=== PATIENT | female | born 1980 | race African-American/Black ===

== ENCOUNTER 2019-07-20 11:20 | Emergency (ER) | payer BC ==
[~2019-07-20] VITALS: Ht 175.3 cm; Wt 72.6 kg
--- OUTSIDE RECORDS SUMMARY | 2019-07-20 11:23 | XMS REPORT ---
Author Author [facility] t Organization [facility] Address Unknown Phone Unavailable Care Team Providers Care Ball Racker Name Role Phone ISABELLE RODRIGUEZ Unavailable Unavailable Payers Payer Name Policy Type Policy Number Effective Date Expiration D ate Problems This patient has no known problems. Allergies, Adverse Reactions, Alerts Allergy Name Allergy Type Status Severity Reaction(s) Onset Date Inacti ve Date Treating Clinician Comments No Known Allergies DA Active U 2017-12-02 00:00:00 Medications This patient has no known medications. Encounters Start Date/Time End Date/Time Encounter Type Admission Type Attendi [facility] Care Department Encounter ID 2018-11-23 19:37:00 2018-11-23 19:37:00 Emergency E MHBL [id number] 2018-11-23 13:29:00 2018-11-23 13:29:00 Outpatient MHSE [id number] 2018-11-06 18:50:00 2018-11-06 18:50:00 Outpatient E MHBL [id number] 2018-11-04 07:39:00 2018-11-04 07:39:00 Outpatient [facility]BL [id number] 2018-11-04 06:02:00 2018-11-04 06:02:00 Outpatient [facility]BL [id number] 2017-12-25 00:00:00 2017-12-25 00:00:00 Outpatient [facility] [id number] 2017-12-22 11:42:25 2017-12-22 11:42:25 Outpatient [facility] [id number] 2017-12-22 10:30:48 2017-12-22 10:30:48 Outpatient [facility] [id number] 2017-12-03 08:53:34 2017-12-03 08:53:34 Outpatient [facility] [id number] Results Test Description Test Time Test Comments Text Results Atomic Results Result Comments WET PREP 2018-09-08 17:37:00 WBC WET PREP (BEAKER) (test code = 528) Few white blood cells se en CLUE CELLS (BEAKER) (test code = 526) Few clue cells seen YEAST WET PREP (BEAKER) (test code = 530) No budding yeast seen TRICH WET PREP (BEAKER) (test code = 531) No Trichomonas seen BACT WET PREP (BEAKER) (test code = 532) Moderate bacteria seen U/S, ENDOVAGINAL (EV)2018-09-08 17:26:00Reason for exam:->ABDOMINAL PAINReason for exam:->possible right ovarian hemorrhagic cystFINAL REPORT Ultrasound of the pelvis, endovaginal ultrasound and duplex Doppler complete. CLINICAL HISTORY: Abdominal pain. Possible right ovarian hemorrhagic cyst. COMPARISON STUDY: CT scan dated September 08, 2018. TECHNIQUE: Grayscale, color-flow, duplex Doppler and spectral analysis of the pelvis was performed. FINDINGS: Both a transabdominal and endovaginal pelvic ultrasound were performed to better visualize the anatomy. The uterus measures 8.3 x 4.8 x 5.6 cm and contains a 6 mm endometrial stripe. No fibroids are seen. The right ovary measures 3.9 x 1.5 x 1.6 cm and left ovary measures 6.7 x 5.6 x 5.0 cm. Normal arterial inflow and venous outflow is seen to both ovaries. On the left side is a 5.9 x 4.6 x 4.6 cm cyst containing thin internal septations. No significant free fluid is seen. IMPRESSION:1. Large septated left ovarian cyst. Follow-up ultrasound in six weeks' time is recommended.2. Flow to both ovaries. Signed: Juvencio Lyles MDReport Verified Date/Time: 09/08/2018 17:26:18 Reading Locati on: OQMT 10th [facility] Radiology Reading Room U/S, PELVIS, WITH [id number] 17:26:00 Reason for exam:->ABDOMINAL PAINFINAL REPORT Ultrasound of the pelvis, endovaginal ultrasound and duplex Doppler complete. CLINICAL HISTORY: Abdominal pain. Possible right ovarian hemorrhagic cyst. COMPARISON STUDY: CT scan dated September 08, 2018. TECHNIQUE: Grayscale, color-flow, duplex Doppler and spectral analysis of the pelvis was performed. FINDINGS: Both a transabdominal and endovaginal pelvic ultrasound were performed to better visualize the anatomy. The uterus measures 8.3 x 4.8 x 5.6 cm and contains a 6 mm endometrial stripe. No fibroids are seen. The right ovary measures 3.9 x 1.5 x 1.6 cm and left ovary measures 6.7 x 5.6 x 5.0 cm. Normal arterial inflow and venous outflow is seen to both ovaries. On the left side is a 5.9 x 4.6 x 4.6 cm cyst containing thin internal septations. No significant free fluid is seen. IMPRESSION:1. Large septated left ovarian cyst. Follow-up ultrasound in six weeks' time is recommended.2. Flow to both ovaries. Signed: Ju[facility]cio Lyles [facility] Verified Date/Time: 09/08/2018 17:26:18 Reading Location: [address] Radiology Reading Room , [id number] 14:32:00FINAL REPORT TECHNIQUE: CT of the abdomen and pelvis WITH intravenous contrast and WITHOUT oral contrast. Dose modulation, iterative reconstruction, and/or weight- based adjustment of the mA/kV was utilized to reduce the radiation dose to as low as reasonably achievable. INDICATION: Abdominal pain, unspecified. COMPARISON: None. FINDINGS: LOWER THORAX: Unremarkable. HEPATOBILIARY: A hyperenhancing structure in segment IV measures 0.8 cm on axial image 15. Additional hyperenhancing structure in segment measure 0.6 cm and 0.8 cm. Gallbladder is unremarkable. No biliary ductal dilatation.SPLEEN: No splenomegal y.PANCREAS: No focal masses or ductal dilatation. ADRENALS: No adrenal nodules.K IDNEYS/URETERS: No hydronephrosis, stones, or masses.PELVIC ORGANS/BLADDER: Retr overted uterus. A mildly hyperdense left adnexal cystic structure measures up to 5.4 cm. The actual ovary does not appear edematous. Upper, left ovary is slight ly deviated towards the midline. PERITONEUM/RETROPERITONEUM: Small volume free f luid in the pelvis.LYMPH NODES: No lymphadenopathy.VESSELS: Retroaortic left ferdinand al vein. GI TRACT: No distention or wall thickening. The appendix is normal. BON ES AND SOFT TISSUES: Masslike hyperenhancement of the lower abdominal wall measu res 2.6 x 1.9 x 2.4 cm. 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 IMPRESSI ON: 1.The left ovarian mildly hyperdense structure measures 5.4 cm and may be a hemorrhagic cyst. Further evaluation with ultrasound is recommended. 2.Hyperenha ncing structures in the liver measure up to 0.8 cm. These are most likely either focal nodular hyperplasia or hemangiomas in the absence of underlying liver dis ease. If the patient has underlying liver disease, consider a MRI of the abdomen with and without contrast on a nonemergent basis. If the patient does not have underlying liver disease, no further imaging is necessary. 3.Some masslike hyper enhancement in the lower abdominal wall is most likely scar endometriosis. This could be confirmed with either biopsy or MRI. Signed: Cody Sanford MDReport Verifi ed Date/Time: 09/08/2018 14:32:30 Reading Location: [address] Body Readin Room C METABOLIC [id number] 12:50:00* Test Item Value Reference Range Comments SODIUM (BEAKER) (test code = 381) 142 meq/L 135-148 POTASSIUM (BEAKER) (test code = 379) 4.5 meq/L 3.6-5.5 CHLORIDE (BEAKER) (test code = 382) 110 meq/L 98-106 CO2 (BEAKER) (test code = 355) 25 meq/L 24-32 BLOOD UREA NITROGEN (BEAKER) (test code = 354) 12 mg/dL 1 0-26 CREATININE (BEAKER) (test code = 358) 0.82 mg/dL 0.50-1.20 GLUCOSE RANDOM (BEAKER) (test code = 652) 85 mg/dL 70-110 CALCIUM (BEAKER) (test code = 697) 8.8 mg/dL 8.5-10.5 EGFR (BEAKER) (test code = 1092) 94 mL/min/1.73 sq m ESTIMATED GFR IS NOT ACCURATE CREATININE CLEARANCE IN PREDICTING GLOMERULAR FILTRATION RATE. ESTIMATED GFR IS NOT APPLICABLE FOR DIALYSIS PATIENTS. HEPATIC FUNCTION [id number] 12:50:00* Test Item Value Reference Range Comments TOTAL PROTEIN (BEAKER) (test code = 770) 6.6 gm/dL 6.0-8.5 ALBUMIN (BEAKER) (test code = 1145) 3.5 g/dL 3.5-5.0 BILIRUBIN TOTAL (BEAKER) (test code = 377) 0.5 mg/dL 0.1-1 .2 BILIRUBIN DIRECT (BEAKER) (test code = 706) 0.4 mg/dL 0.0- 0.4 ALKALINE PHOSPHATASE (BEAKER) (test code = 346) 21 U/L 30-115 AST (SGOT) (BEAKER) (test code = 353) 23 U/L 5-40 ALT (SGPT) (BEAKER) (test code = 347) 20 U/L 5-50 URINALYSIS W/ REFLEX URINE [id number] 12:46:00* Test Item Value Reference Range Comments COLOR (BEAKER) (test code = 470) Yellow CLARITY (BEAKER) (test code = 469) Slightly Cloudy SPECIFIC GRAVITY UA (BEAKER) (test code = 468) 1.032 1 .001-1.035 Test performed on refractometer PH UA (BEAKER) (test code = 467) 6.0 5.0-8.0 PROTEIN UA (BEAKER) (test code = 464) Negative Negative GLUCOSE UA (BEAKER) (test code = 365) Negative Negative KETONES UA (BEAKER) (test code = 371) Negative Negative BILIRUBIN UA (BEAKER) (test code = 462) Positive Negative BLOOD UA (BEAKER) (test code = 461) Small Negative NITRITE UA (BEAKER) (test code = 465) Negative Negative LEUKOCYTE ESTERASE UA (BEAKER) (test code = 466) Negative Negative UROBILINOGEN UA (BEAKER) (test code = 463) 0.2 mg/dL 0.2-1 .0 BACTERIA (BEAKER) (test code = 517) Moderate MUCUS (BEAKER) (test code = 1574) Many RBC UA-MANUAL (BEAKER) (test code = 1659) 5-10 /HPF WBC UA-MANUAL (BEAKER) (test code = 1661) 10-20 /HPF SQUAMOUS EPITHELIAL MANUAL (BEAKER) (test code = 1663) 10-20 /HP F SOURCE(BEAKER) (test code = 2795) CBC W/PLT COUNT & AUTO [id number] 12:42:00* Test Item Value Reference Range Comments WHITE BLOOD CELL COUNT (BEAKER) (test code = 775) 5.0 K/ L 4.0-10.0 RED BLOOD CELL COUNT (BEAKER) (test code = 761) 4.86 M/ L 4.00-5.00 HEMOGLOBIN (BEAKER) (test code = 410) 12.2 GM/DL 12.0-15.0 HEMATOCRIT (BEAKER) (test code = 411) 38.2 % 36.0-45.0 MEAN CORPUSCULAR VOLUME (BEAKER) (test code = 753) 78.5 fL 82.0-99.0 MEAN CORPUSCULAR HEMOGLOBIN (BEAKER) (test code = 751) 25.1 pg 27.0-33.0 MEAN CORPUSCULAR HEMOGLOBIN CONC (BEAKER) (test code = 752) 31.9 GM/DL 32.0-36.0 RED CELL DISTRIBUTION WIDTH (BEAKER) (test code = 412) 15.7 % 10.3-14.2 PLATELET COUNT (BEAKER) (test code = 756) 301 K/CU MM 150-43 0 MEAN PLATELET VOLUME (BEAKER) (test code = 754) 8.2 fL 6.5-10.5 NEUTROPHILS RELATIVE PERCENT (BEAKER) (test code = 429) 39 % LYMPHOCYTES RELATIVE PERCENT (BEAKER) (test code = 430) 49 % MONOCYTES RELATIVE PERCENT (BEAKER) (test code = 431) 7 % EOSINOPHILS RELATIVE PERCENT (BEAKER) (test code = 432) 4 % BASOPHILS RELATIVE PERCENT (BEAKER) (test code = 437) 0 % NEUTROPHILS ABSOLUTE COUNT (BEAKER) (test code = 670) 1.96 K/ L 1.80-8.00 LYMPHOCYTES ABSOLUTE COUNT (BEAKER) (test code = 414) 2.47 K/ L 1.48-4.50 MONOCYTES ABSOLUTE COUNT (BEAKER) (test code = 415) 0.33 K/ L 0.00-1.30 EOSINOPHILS ABSOLUTE COUNT (BEAKER) (test code = 416) 0.21 K/ L 0.00-0.50 BASOPHILS ABSOLUTE COUNT (BEAKER) (test code = 417) 0.02 K/ L 0.00-0.20 SCREEN, [id number] 12:41:00* Test Item Value Reference Range Comments TEST URINE (BEAKER) (test code = 583) Negative
--- NOTE | 2019-07-20 12:33 | Diagnostic Imaging Report ---
CT of the abdomen and pelvis, without contrast. History: Abdominal pain. Comparison: None available. Technique: Multidetector CT scanning of the abdomen and pelvis was performed from the level of the lung bases to the inferior pubic rami without the use of contrast. Coronal and sagittal multiplanar reformations were obtained. RADIATION DOSE: Total DLP: 804.17 mGy*cm Dose modulation, iterative reconstruction, and/or weight based adjustment of the mA/kV was utilized to reduce the radiation dose to as low as reasonably achievable. FINDINGS: The visualized lungs are unremarkable. The imaged portion of the heart demonstrates no significant abnormalities. The liver is normal in size and attenuation on this noncontrast enhanced examination. The gallbladder appears contracted but otherwise unremarkable. There is no biliary ductal dilatation. The stomach is distended with ingested material but otherwise unremarkable. The pancreas, spleen, and bilateral adrenal glands demonstrate unremarkable noncontrast appearance. The kidneys are normal in size and location. There is no evidence for nephrolithiasis or hydronephrosis. No ureteral stone or dilatation is appreciated. Suspected phlebolith are noted within the pelvis, none of which can be localized to within the urinary system. The urinary bladder is not distended for evaluation. The uterus is surgically absent. No abnormal adnexal masses are identified. Air is normal course and caliber. The IVC is normal in caliber. Please note evaluation the bowel is limited without the use of enteric contrast material. The visualized loops of small and large bowel demonstrate no evidence of obstruction or inflammation. A suspected normal-appearing appendix is identified within the right lower quadrant. There is no ascites or peritoneal free air. No abnormally enlarged lymph nodes are identified within the abdomen or pelvis. Small fat-containing umbilical hernia noted. The osseous structures demonstrate no evidence for acute fracture or destructive process. IMPRESSION: No acute abdominopelvic process identified to correlate with the patient's abdominal pain. Signed by: Dr. Seamus Dailey MD on 07/20/2019 12:30 PM
[2019-07-20 12:40] VITALS: BP 99/57
[2019-07-20] MEDS ORDERED: ZOFRAN4 MG SL (12:42)
== END 2019-07-20 12:47 | disposition home or self-care (01) ==
LOC: FSED 11:20
DX: R10.31 Right lower quadrant pain (principal); R10.30 Lower abdominal pain, unspecified; R11.2 Nausea with vomiting, unspecified; F17.210 Nicotine dependence, cigarettes, uncomplicated
CPT/HCPCS: 74176; 80048; 80076; 81003; 85025; 99284

== ENCOUNTER 2019-09-07 17:42 | Emergency (ER) | payer OTHER, BC ==
[~2019-09-07] VITALS: Ht 175.3 cm; Wt 72.6 kg
[~2019-09-07 17:42] MED LIST: ZOFRAN4 MG SL
[2019-09-07] MEDS ORDERED: SODIUM CHLORIDE 0.9% 1000ML 1,000 ML IV STA (18:18)
[2019-09-07] MEDS ORDERED: ONDANSETRON HCL INJ 2MG/ML 2ML 2 MG/ML VIAL IV STA (18:18)
[2019-09-07] MEDS ORDERED: KETOROLAC TROMETHAMINE 30 MG/ML VIAL IV ONE (18:30)
[2019-09-07] MEDS ORDERED: FAMOTIDINE 20 MG/2 ML VIAL IV ONE (18:30)
--- NOTE | 2019-09-07 18:42 | Diagnostic Imaging Report ---
EXAMINATION: CXR 1 VEW - HOPD INDICATION: Chest pain COMPARISON: None FINDINGS: AP view TUBES and LINES: None. LUNGS/PLEURA: Lungs are well inflated. There is no evidence of pneumonia or pulmonary edema.. There is no pleural effusion or pneumothorax. HEART AND MEDIASTINUM: The cardiomediastinal silhouette is unremarkable. BONES AND SOFT TISSUES: No acute osseous lesion. Soft tissues are unremarkable. UPPER ABDOMEN: No free air under the diaphragm. IMPRESSION: No acute thoracic abnormality. Signed by: Hakeem Patton MD on 09/07/2019 6:39 PM
--- NOTE | 2019-09-07 18:52 | Emergency Department Note ---
History of Present Illnes History of Present Illness History of Present Illness This is a 39 year old female c/o mid ches tpain for 4 days, constant, hurting with a deep breath. states CP started yesterday when she went to use the bathroom. Pain described as initially sharp then a constant dull cramping pain that gets worse when she lays down. Has taken antiacids without relief. Pain is now traveling to top of shoulder. Also, pt. states she has had a non-productive cough x4 days. 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 Any updates have been documented here. Past Medical History Recent Fever: No Clinical Suspicion of Infectio: No New/Unexplained Change in Ment: No Past Medical History: None Past Surgical History: Hysterectomy, Other Surgery: endometriosis, Social History Smoking Cessation: Unknown if ever smoked Alcohol Use: Social Any Illegal Drug Use: No TB Exposure/Symptoms: No Physically hurt or threatened: No Family History Family history of heart diseas: No Other Any Pre-Existing Lines (PICC,: No Is patient up to date on immun: No Review of Systems Review of Systems Constitutional: Reports malaise EENTM: Reports no symptoms Cardiovascular: Reports chest pain Respiratory: Reports no symptoms, Reports chest congestion, Reports cough, Reports pain with cough Gastrointestinal: Reports no symptoms Genitourinary: Reports no symptoms Musculoskeletal: Reports no symptoms Integumentary: Reports no symptoms Neurological: Reports no symptoms Psychological: Reports no symptoms Endocrine: Reports no symptoms Hematological/Lymphatic: Reports no symptoms Physical Exam Physical Exam CONSTITUTIONAL Constitutional: Present well-developed, Present well-nourished HENT HENT: Present normocephalic, Present atraumatic, Present oropharynx clear/moist, Present nose normal HENT L/R: Present left ext ear normal, Present right ext ear normal EYES Eyes: Reports PERRL, Reports conjunctivae normal NECK Neck: Present ROM normal PULMONARY Pulmonary: Present effort normal, Present breath sounds normal CARDIOVASCULAR Cardiovascular: Present regular rhythm, Present heart sounds normal, Present capillary refill normal, Present normal rate GASTROINTESTINAL Abdominal: Present soft, Present nontender, Present bowel sounds normal GENITOURINARY Genitourinary: Present exam deferred SKIN Skin: Present warm, Present dry MUSCULOSKELETAL Musculoskeletal: Present ROM normal NEUROLOGICAL Neurological: Present alert, Present oriented x 3, Present no gross motor or sensory deficits PSYCHOLOGICAL Psychological: Present mood/affect normal, Present judgement normal Results Laboratory Lab results reviewed: Yes Laboratory comments ddimer normal, doubt PE Imaging Imaging results reviewed: Yes (normal chest xray) Imaging Comments wnl Procedures 12 Lead ECG Interpretation ECG Interpretation : ECG: ECG 1 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 Power Plant Assembler: Interpreted by ED physician Date: Sep 07, 2019 Time: 18:04 Prior ECG tracings: reviewed Rhythm: sinus rhythm Rate: normal QRS axis: normal ST segments normal: Yes T waves normal: Yes Other findings: LAE Clinical Impression: non-specific ECG Assessment & Plan Medical Decision Making MDM clinically c/w COVID 19 Reassessment Reassessment taking po well Assessment & Plan Final Impression: (1) COVID-19 virus infection (2) Exposure to COVID-19 virus (3) Counseled about COVID-19 virus infection (4) GERD with esophagitis Depart Disposition: HOME, SELF-halfway Meds Active Scripts Famotidine (FAMOTIDINE) 20 Mg Tab, 20 MG PO DAILY, #30 TAB Prov:LOU ALVAREZ MD 09/07/19 Azithromycin (Z-SIDDHARTHA) 250 Mg Tablet, 250 MG PO UD, #1 UDPKT Z-Pack Prov:LOU ALVAREZ MD 09/07/19 Ondansetron Hcl* (ZOFRAN*) 4 Mg Tablet, 4 MG SL Q6H PRN for NAUSEA, #14 MG 0 Refills Prov:LOU ALVAREZ MD 09/07/19 Ondansetron Hcl* (ZOFRAN*) 4 Mg Tablet, 4 MG SL Q6H PRN for NAUSEA, #14 MG 0 Refills Prov:CLAY HAMM MD 07/20/19 Medications in the ED Famotidine 20 mg ONCE ONCE IV ; Start 09/07/19 at 18:30; Stop 09/07/19 at 18:31; Status UNV Ondansetron HCl 4 mg NOW STAT IV ; Start 09/07/19 at 18:18; Stop 09/07/19 at 18:19; Status UNV Ketorolac Tromethamine 30 mg ONCE ONCE IV ; Start 09/07/19 at 18:30; Stop 09/07/19 at 18:31; Status UNV Sodium Chloride 1,000 ml @ 0 mls/hr Q0M STAT IV ; Start 09/07/19 at 18:18; Stop 09/07/19 at 18:21; Status DC LOU ALVAREZ MD Sep 07, 2019 18:52
[2019-09-07] MEDS ORDERED: SODIUM CHLORIDE 0.9% 1000ML 1,000 ML ONE (19:28)
[2019-09-07] MEDS ORDERED: ZOFRAN4 MG SL (20:21)
[2019-09-07] MEDS ORDERED: AZITHROMYCIN250 MG PO (20:21)
[2019-09-07] MEDS ORDERED: FAMOTIDINE20 MG PO (20:21)
--- NOTE | 2019-09-07 20:27 | NUR ---
Dr. Caro ordered a UA however, pt. was unable to give sample. Dr. Caro advised.
[2019-09-07 21:18] VITALS: BP 106/70
== END 2019-09-07 21:18 | disposition home or self-care (01) ==
LOC: FSED 17:42
DX: U07.1 COVID-19 (principal); R05 Cough; K21.0 Gastro-esophageal reflux disease with esophagitis; N80.9 Endometriosis, unspecified
CPT/HCPCS: 71045; 80053; 84484; 85025; 85379; 87635; 96374; 96375; 96376; 99284; J1885; J2405; J7030

== ENCOUNTER 2019-12-16 11:54 | Emergency (ER) | payer BC, OTHER ==
[~2019-12-16] VITALS: Ht 175.3 cm; Wt 81.3 kg
[~2019-12-16 11:54] MED LIST changes: +AZITHROMYCIN250 MG PO; +FAMOTIDINE20 MG PO
[2019-12-16] MEDS ORDERED: KETOROLAC TROMETHAMINE 30 MG/ML VIAL IM STA (12:26)
--- NOTE | 2019-12-16 12:34 | NUR ---
ultrasound called in for pt
--- NOTE | 2019-12-16 12:34 | Emergency Department Note ---
History of Present Illnes History of Present Illness Chief Complaint: co right sided breast mass for last 2 weeks History of Present Illness This is a 39 year old female . 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 Any updates have been documented here. Past Medical History Recent Fever: No Clinical Suspicion of Infectio: No New/Unexplained Change in Ment: No Past Medical History: None Past Surgical History: Hysterectomy, Other Surgery: endometriosis, Social History Smoking Cessation: Current every day smoker Counseling Performed: Yes Alcohol Use: None Any Illegal Drug Use: No TB Exposure/Symptoms: No Physically hurt or threatened: No Other Any Pre-Existing Lines (PICC,: No Is patient up to date on immun: No Review of Systems Review of Systems Constitutional: Reports no symptoms EENTM: Reports no symptoms Cardiovascular: Reports no symptoms Respiratory: Reports no symptoms Gastrointestinal: Reports no symptoms Genitourinary: Reports no symptoms Musculoskeletal: Reports no symptoms Integumentary: Reports no symptoms Neurological: Reports no symptoms Psychological: Reports no symptoms Endocrine: Reports no symptoms Hematological/Lymphatic: Reports no symptoms Physical Exam Physical Exam CONSTITUTIONAL Constitutional: Present well-developed, Present well-nourished HENT HENT: Present normocephalic, Present atraumatic EYES Eyes: Reports PERRL, Reports conjunctivae normal, Reports EOM normal, Reports lids normal NECK Neck: Present ROM normal, Present supple PULMONARY Pulmonary: Present effort normal, Present breath sounds normal CARDIOVASCULAR Cardiovascular: Present regular rhythm, Present heart sounds normal, Present intact distal pulses, Present capillary refill normal GASTROINTESTINAL Abdominal: Present soft, Present nontender, Present bowel sounds normal GENITOURINARY Genitourinary: Present exam deferred SKIN Skin: Present erythema (? erythema areaolar area. nippli without discharge or distortion of anatomy), Present other (6x6 cm hard tender subareaolar mass no axillary nodes palpable) MUSCULOSKELETAL Musculoskeletal: Present ROM normal NEUROLOGICAL Neurological: Present alert, Present oriented x 3, Present DTRs normal, Present no gross motor or sensory deficits PSYCHOLOGICAL Psychological: Present mood/affect normal, Present behavior normal, Present thought content normal, Present judgement normal Procedures Incision and Drain Emergent situation: Yes Type of anesthesia: local Risks and benefits discussed: Yes Verbal consent obtained: Yes Written consent obtained: Yes Consent given by: patient Imaging studies available/revi: yes Prepped and draped in sterile: Yes Two patient identifiers confir: name, date of , medical record number Identity confirmed by: patient Procedure verified: Yes Side verified: yes Site verified: yes Site marked: yes Type: abscess Size: 2x2 cm Anesthesia method: local infiltration (2 % lidicaine without epi) Needle aspiration: Yes Incision type: stab incision Incision depth: submucosal Scalpel blade: 11 Wound management: probed and deloculated Drainage: purulent Drainage amount: moderate Wound treatment: wound left open Packing used: none Patient tolerance: tolerated well Procedure attestation: I performed the procedure Assessment & Plan Medical Decision Making MDM aspirated approx 2 cc of purulent material and size of the mass greatly decreased. I and D attempted unsuccessful Assessment & Plan Final Impression: (1) Abscess of breast Depart Disposition: HOME, SELF-[facility] Meds Active Scripts Acetaminophen/Codeine* (TYLENOL # 3*) 1 Ea Tab, 1 TAB PO QID PRN for pain for 5 Days, #20 0 Refills Prov:ANGES HORNE MD 12/16/19 Sulfamethoxazole/Trimethoprim (BACTRIM DS TABLET) 1 Each Tablet, 1 TAB PO BID for abcess for 10 Days, #20 TAB 0 Refills Prov:AGNES HORNE MD 12/16/19 Famotidine (FAMOTIDINE) 20 Mg Tab, 20 MG PO DAILY, #30 TAB Prov:LOU ALVAREZ MD 09/07/19 Azithromycin (Z-SIDDHARTHA) 250 Mg Tablet, 250 MG PO UD, #1 UDPKT Z-Pack Prov:LOU ALVAREZ MD 09/07/19 Ondansetron Hcl* (ZOFRAN*) 4 Mg Tablet, 4 MG SL Q6H PRN for NAUSEA, #14 MG 0 Refills Prov:LOU ALVAREZ MD 09/07/19 Ondansetron Hcl* (ZOFRAN*) 4 Mg Tablet, 4 MG SL Q6H PRN for NAUSEA, #14 MG 0 Refills Prov:CLAY HAMM MD 07/20/19 AGNES HORNE MD Dec 16, 2019 12:34
[2019-12-16] MEDS ORDERED: KETOROLAC TROMETHAMINE 30 MG/ML VIAL ONE (12:46)
--- OUTSIDE RECORDS SUMMARY | 2019-12-16 12:51 | XMS REPORT | Clinical Summary ---
Author Author 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 04/05/2019 Discontinued ibuprofen (ADVIL,MOTRIN) 1 po q 6 30 tablet 0 0 600 MG tablet hours, with 9 food, for pain and inflammation. . 04/05/2019 Discontinued ondansetron (ZOFRAN-ODT) 1 po q 6 20 tablet 0 0 4 MG disintegrating hour, prn 9 tablet nausea and vomiting.. 04/10/2019 oseltamivir (TAMIFLU) 75 Take 1 10 capsule 0 0 MG capsule capsule (75 0 mg total) by mouth 2 (two) times daily for 5 days. 08/09/2019 promethazine (PHENERGAN) Take 1 tablet 12 tablet 0 25 MG tablet (25 mg total) 0 by mouth every 6 (six) hours as needed for Nausea for up to 12 days. Active Problems Not on file Encounters Care Team Description Date Type Specialty OtElías lambert MD Non-intractable vomiting with nausea, un specified vomiting type (Primary Dx); Diarrhea, unspecified type; Gastroenteritis 07/28/2019 Emergency Emergency Medicine 07/28/2019 Travel Mamadou Barajas MD Acute viral syndrome (Primary Dx); Myalgia; Moderate fever; Nasal congestion; Nonproductive cough 04/05/2019 Emergency Emergency Medicine 04/05/2019 Travel after 12/15/2018 Family History Medical History Relation Name Comments COPD Mother Relation Name Status Comments Mother Social History Date Tobacco Use Types Packs/Day Years Used Current Every Day Smoker Cigarettes 0.5 Smokeless Tobacco: Never Used Alcohol Use Drinks/Week oz/Week Comments Yes rarely Sex Assigned at Date Recorded Not on file Industry Job Start Date Occupation Not on file Not on file Not on file Travel End Travel History Travel Start No recent travel history available. Last Filed Vital Signs Time Taken Vital Sign Reading 07/28/2019 6:20 PM CDT Blood Pressure 108/67 07/28/2019 6:20 PM CDT Pulse 73 07/28/2019 6:20 PM CDT Temperature 36.7 C (98 F) 07/28/2019 6:20 PM CDT Respiratory Rate 20 07/28/2019 6:20 PM CDT Oxygen Saturation 99% - Inhaled Oxygen - Concentration 07/28/2019 6:20 PM CDT Weight 75.8 kg (167 lb) 07/28/2019 6:20 PM CDT Height 175.3 cm (5' 9") 07/28/2019 6:20 PM CDT Body Mass Index 24.66 Plan of Treatment Not on file Results Not on fileafter 12/15/2018 Insurance Payer Benefit Subscriber ID Type Phone Address Plan / Group BLUE CROSS/[employer]UE [employer] BCBS OS xxxxxxxxxxxxxx PPO [address] [place] [address] O 57842-4 731
--- OUTSIDE RECORDS SUMMARY | 2019-12-16 12:51 | XMS REPORT | Clinical Summary ---
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 migrainosus, not Repeat after intractable 2 hours if needed. Maximum 200mg/24 hours.. Active ibuprofen (MOTRIN) 800 mg Take 1 tablet 30 tablet 0 tabletIndications: by mouth 8 Migraine without aura and every 8 hours without status as needed for migrainosus, not Pain. intractable Active ketoconazole (NIZORAL) 2 Apply to 30 g 0 1 % topical affected area 8 creamIndications: Tinea daily. pedis of left foot Active terbinafine HCl (LAMISIL) Take 1 tablet 45 tablet 0 250 mg tabletIndications: by mouth 8 Tinea pedis of left foot, daily. Onychomycosis of left great toe Active Problems Problem Noted Date Establishing care with new doctor, encounter for 10/2017 Tinea pedis of left foot 12/22/2017 Decay, teeth 07/29/2012 Family History Medical History Relation Name Comments Cancer Maternal Grandfather Arthritis Maternal Grandmother Hypertension Maternal Uncle Cancer Paternal Grandmother Relation Name Status Comments Father Alive Maternal Grandfather Maternal Grandmother Maternal Uncle Mother Alive Paternal Grandmother Social History Date Tobacco Use Types Packs/Day Years Used Current Every Day Smoker Cigarettes 15 Smokeless Tobacco: Never Used Tobacco Cessation: Ready to Quit: No; Co unseling Given: Yes Comments: 2 packs a week Drinks/Week oz/Week Comments Alcohol Use 1 Glasses of wine 1.0 Yes Sex Assigned at Date Recorded Not on file Industry Job Start Date Occupation Not on file Not on file Not on file Travel End Travel History Travel Start No recent travel history available. Last Filed Vital Signs Not on file Plan of Treatment Health Maintenance Due Date Last Done Comments Cervical Cancer Scrn (3 07/12/1999 Yrs) Breast Cancer Scrn 2018 (Yearly) IMM Influenza Seasonal 12/16/2019Dec to May (>/= 19 yrs) Results Not on fileafter 12/15/2018 Insurance Type Payer Benefit Subscriber ID Effective Phone Address Plan / Dates Group BC/BS BC/BS PPO xxxxxxxxxxxxxx 2017-P [phone] [facility] [id number] [place] [address]
--- OUTSIDE RECORDS SUMMARY | 2019-12-16 12:52 | XMS REPORT | Continuity of Care Document ---
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 05/31/2019 [facility] Encounters Start Date/Time End Date/Time Encounter Type Admission Type Attendi [facility] Care Department Encounter ID Source 2019-09-07 17:42:00 2019-09-07 17:42:00 Registered Emergency Room 1 LOU ALVAREZ [facility] [id number] [facility] 2019-07-20 11:20:00 2019-07-20 12:47:00 Departed Emergency Room 1 CLAY HAMM [facility] [id number] [facility] 2018-11-23 13:40:00 2018-11-23 23:59:59 Outpatient Klaus Ledesma [facility] [id number] 2018-11-23 13:29:00 2018-11-23 23:59:00 Outpatient Cristel Gallego MHSE MHSE [id number] 2018-11-23 19:37:59 2018-11-23 20:43:00 Outpatient Liz Hook [facility]PL MHPL [id number] 2018-11-23 19:37:00 2018-11-23 19:37:00 Emergency E MHBL MHBL [id number] [facility] 2018-11-23 13:29:00 2018-11-23 13:29:00 Outpatient MHSE MHSE [id number] [facility] 2018-11-18 13:47:17 2018-11-19 23:59:59 Outpatient MHMG [facility] [id number] 2018-11-06 17:26:54 2018-11-10 13:22:00 Outpatient Cristel Gallego [facility] [id number] 2018-11-06 18:50:00 2018-11-06 18:50:00 Outpatient E MHBL [facility]BL [id number] [facility] 2018-11-04 07:39:00 2018-11-05 10:26:00 Outpatient Cristel Gallego [facility] [id number] 2018-11-04 07:39:00 2018-11-04 07:39:00 Outpatient MHBL MHBL [id number] [facility] 2018-11-04 06:02:00 2018-11-04 06:02:00 Outpatient [facility]BL [facility] [id number] [facility] 2017-12-25 00:00:00 2017-12-25 00:00:00 Outpatient [facility] [id number] [facility] 2017-12-22 11:42:25 2017-12-22 11:42:25 Outpatient [facility] [id number] [facility] 2017-12-22 10:30:48 2017-12-22 10:30:48 Outpatient [facility] [id number] [facility] 2017-12-03 08:53:34 2017-12-03 08:53:34 Outpatient [facility] [id number] [facility] 2017-01-21 07:03:00 2017-01-21 08:20:00 Outpatient Mame Raman [facility] [id number] Results Test Description Test Time Test Comments Results Result Comments Source CXR [address] [facility] 2019-09-07 18:38:00 [place] [address] Patient Name: MARISELA BARAHONA MR #: [id number] : 1980 Age/Sex: 39/F Req #: [id number] Adm Physician: Ordered by: LOU ALVAREZ MD Report #: [id number] Location: [facility] Room/Bed: Procedure: [id number] [facility] Exam Date: 09/07/19 Exam Time: 1830 REPORT STATUS: Signed EXAMINATION: CXR [facility] INDICATION: Chest pain COMPARISON: None FINDINGS: AP view TUBES and LINES: None. LUNGS/PLEURA: Lungs are well inflated. There is no evidence of pneumonia or pulmonary edema.. There is no pleural effusion or pneumothorax. HEART AND MEDIASTINUM: The cardiomediastinal silhouette is unremarkable. BONES AND SOFT TISSUES: No acute osseous lesion. Soft tissues are unremarkable. UPPER ABDOMEN: No free air under the diaphragm. IMPRESSION: No acute thoracic abnormality. Signed by: Hakeem Teague MD on 09/07/2019 6:39 PM Dictated By: HAKEEM TEAGUE MD 38 Transcribed By: MARYAN on 09/07/191838 COPY TO: LOU ALVAREZ MD CT ABD/PEL WO CONTRAST-HOPD 2019-07-20 12:22:00 [place] [address] Patient Name: MARISELA BARAHONA MR #: [id number] : 1980 Age/Sex: 39/F Req #: [id number] Adm Physician: Ordered by: CLAY HAMM MD Report #: [id number] Location: [facility] Room/Bed: Procedure: [id number] HOPD/CT ABD/PEL WO CONTRAST-HOPD Exam Date: 07/20/19 Exam Time: 1217 REPORT STATUS: Signed CT of the abdomen and pelvis, without contrast. History: Abdominal pain. Comparison: None available. Technique: Multidetector CT scanning of the abdomen and pelvis was performed from the level of the lung bases to the inferior pubic rami without the use of contrast. Coronal and sagittal multiplanar reformations were obtained. RADIATION DOSE: Total DLP: 804.17 mGy*cm Dose modulation, iterative reconstruction, and/or weight based adjustment of the mA/kV was utilized to reduce the radiation dose to as low as reasonably achievable. FINDINGS: The visualized lungs are unremarkable. The imaged portion of the heart demonstrates no significant abnormalities. The liver is normal in size and attenuation on this noncontrast enhanced examination. The gallbladder appears contracted but otherwise unremarkable. There is no biliary ductal dilatation. The stomach is distended with ingested material but otherwise unremarkable. The pancreas, spleen, and bilateral adrenal glands demonstrate unremarkable noncontrast appearance. The kidneys are normal in size and location. There is no evidence for nephrolithiasis or hydronephrosis. No ureteral stone or dilatation is appreciated. Suspected phle bolith are noted within the pelvis, none of which can be localized to within the urinary system. The urinary bladder is not distended for evaluation. The uterus is surgically absent. No abnormal adnexal masses are identified. Air is normal course and caliber. The IVC is normal in caliber. Please note evaluation the bowel is limited without the use of enteric contrast material. The visualized loops of small and large bowel demonstrate no evidence of obstruction or inflammation. A suspected normal-appearing appendix is identified within the right lower quadrant. There is no ascites or peritoneal free air. No abnormally enlarged lymph nodes are identified within the abdomen or pelvis. Small fat-containing umbilical hernia noted. The osseous structures demonstrate no evidence for acute fracture or destructive process. IMPRESSION: No acute abdominopelvic process identified to correlate with the patient's abdominal pain. Signed by: Dr. Seamus Dailey MD on 07/20/2019 12:30 PM Dictated By: SEAMUS DAILEY MD 1230 Transcribed By: MARYAN on 07/20/19 1230 COPY TO: CLAY HAMM MD CHEM PANEL 2018-11-08 10:05:00 115 [facility] CHEM PANEL 2018-11-08 10:05:00 7 [facility] CHEM PANEL 2018-11-08 10:05:00 0.78 [facility] CHEM PANEL 2018-11-08 10:05:00 145 [facility] [place] CHEM PANEL 2018-11-08 10:05:00 3.7 [facility] [place] CHEM PANEL 2018-11-08 10:05:00 111 [facility] CHEM PANEL 2018-11-08 10:05:00 29 [facility] [place] CHEM PANEL 2018-11-08 10:05:00 8.4 [facility] CHEM PANEL 2018-11-08 10:05:00 109 [facility] CHEM PANEL 2018-11-08 10:05:00 8.7 [facility] HEMATOLOGY 2018-11-08 10:05:00 9.4 [facility] HEMATOLOGY 2018-11-08 10:05:00 28.2 [facility] [place] CHEM PANEL 2018-11-07 09:32:00 92 [facility] [place] CHEM PANEL 2018-11-07 09:32:00 11 [facility] [place] CHEM PANEL 2018-11-07 09:32:00 0.93 [facility] [place] CHEM PANEL 2018-11-07 09:32:00 143 [facility] [place] CHEM PANEL 2018-11-07 09:32:00 3.4 [facility] [place] CHEM PANEL 2018-11-07 09:32:00 111 [facility] CHEM PANEL 2018-11-07 09:32:00 28 [facility] CHEM PANEL 2018-11-07 09:32:00 7.4 [facility] CHEM PANEL 2018-11-07 09:32:00 8.3 [facility] CHEM PANEL 2018-11-07 09:32:00 89 [facility] HEMATOLOGY 2018-11-07 09:32:00 55.6 [facility] HEMATOLOGY 2018-11-07 09:32:00 36.5 [facility] [place] HEMATOLOGY 2018-11-07 09:32:00 6.3 [facility] HEMATOLOGY 2018-11-07 09:32:00 1.3 [facility] HEMATOLOGY 2018-11-07 09:32:00 0.3 [facility] [place] HEMATOLOGY 2018-11-07 09:32:00 3.5 [facility] [place] HEMATOLOGY 2018-11-07 09:32:00 2.3 [facility] HEMATOLOGY 2018-11-07 09:32:00 0.4 [facility] [place] HEMATOLOGY 2018-11-07 09:32:00 0.1 [facility] [place] HEMATOLOGY 2018-11-07 09:32:00 6.3 [facility] HEMATOLOGY 2018-11-07 09:32:00 3.40 [facility] HEMATOLOGY 2018-11-07 09:32:00 9.0 [facility] HEMATOLOGY 2018-11-07 09:32:00 27.1 [facility] HEMATOLOGY 2018-11-07 09:32:00 79.7 [facility] [place] HEMATOLOGY 2018-11-07 09:32:00 Test Item MCH (test code = MCH) 26.4 pg 27.0-31.0 [facility] ZzqjcdcFXMFHVBVUF1281-95-82 09:32:0033.1[facility] 2018-11-07 09:32:0015.7[facility] AuwcwvzKMSABWFOJS7105-88-24 09:32:28371Evqghtki RjyicezQMNQZKJKZP5498-28-62 09:32:007.7[facility] CvofowwIYVASCIQKG5647-32-54 02:13:00* Test Item Value Reference Range Interpretation Comments PT (test code = PT) 13.5 s 12.0-14.7 [facility] YdoylsvMICJFAMFYF2788-66-12 02:13:00* Test Item Value Reference Range Interpretation Comments INR (test code = INR) 1.05 1 0.85-1.17 [facility] UyigvneRAJIOOQPOP8485-50-85 02:13:00* Test Item Value Reference Range Interpretation Comments PTT (test code = PTT) 31.2 s 22.9-35.8 [facility] TVIYU6448-73-46 23:17:00Amber *ABN*(11/06/18 6:17 PM) [facility] XYQOS6463-39-73 23:17:00Marked *ABN*(11/06/18 6:17 PM) [facility] JVWCY1327-01-94 23:17:00* Test Item Value Reference Range Interpretation Comments UA Spec Grav (test code = UA Spec Grav) 1.032 1 [facility] DKSVD0554-50-94 23:17:00* Test Item Value Reference Range Interpretation Comments UA pH (test code = UA pH) 5.0 1 5.0-8.0 [facility] SGZSJ4364-76-18 23:17:00Negative *NA*(11/06/18 6:17 PM) [facility] GWCXH0833-91-32 23:17:00Moderate *ABN*(11/06/18 6:17 PM)[facility] ICTYG5281-00-93 23:17:00Negative (11/06/18 6:17 PM) [facility] ZXXOT4441-99-74 23:17:00Negative (11/06/18 6:17 PM) [facility] MCYFV2181-34-00 23:17:98876Lrpejtek HermannURINE AND BGHHH1254-88-05 23:17:00>182[facility] VZVJC8448-60-52 23:17:0046 [facility] ClezjmbIYKNLTDGDUNA3488-41-94 23:00:007.3[facility]annELECTROLYTES 2018-11-06 23:00:0094[facility] BfodjrlOEZTPFODFXTM3874-26-50 23:00:0014[facility] XycumxhFXDVDUMSLNLD2233-83-22 23:00:002.58[facility] MmqhmooDPAIBNWYVMKG5851-51-67 23:00:45544Zwdvhbsc LakbvxdAWKQRZKUQDKL5641-11-29 23:00:003.3[facility] [place] TENJQQKNAVOD3753-46-16 23:00:04937Uvopueqq SodxjdlZHEBVFJMQWZK0657-81-56 23:00:0029[facility] BwibrwmXKYTVRBRFLDT7688-15-92 23:00:009.2[facility] FOFNXCDIOOJO6316-11-04 23:00:0026[facility] YfllfcqQORIBSDDPK6791-76-52 23:00:00 9.3[facility] UskzviaQHJCCBYNGW2470-89-05 23:00:004.48[facility]ann[facility]MATOLOGY 2018-11-06 23:00:0011.9[facility] MiufwqwCETYWYILFU7547-34-58 23:00:0036.5[facility] PazsundXXRDMGHUDV4037-56-24 23:00:0081.4[facility] XhtchrkOXNTSIFTUI3252-77-98 23:00:00* Test Item Value Reference Range Interpretation Comments MCH (test code = MCH) 26.5 pg 27.0-31.0 [facility] AmbjxdyGFNNDSEOUR7527-88-31 23:00:0032.6[facility]annHEMATOLOGY 2018-11-06 23:00:0016.1[facility] XshuygxBSFGSKKJSJ6242-07-60 23:00:69737Rzrdegjg TpqrpajFHZCLSIWNM5423-13-47 23:00:008.0[facility] ZshnfwhNRDNRKVCTF4610-68-64 23:00:0076.9[facility] PyuwnsgWSDXWPDKPW9141-72-70 23:00:0017.3[facility] PRMTLCMSXO9121-11-54 23:00:004.8[facility] GgwyhhjLTUJFUAOEE0547-64-59 23:00:000.7 [facility] KjkvyjdIAKPQXJWZS7422-91-00 23:00:000.3[facility]ann[facility]MATOLOGY 2018-11-06 23:00:007.1[facility] CcxsixcIYMAPZQEAR6543-18-91 23:00:001.6[facility] DzfcuuhRUKQKKEVZB4727-77-02 23:00:000.4[facility] CcxffuhRQHSQTMSIJ5096-02-89 23:00:000.1[facility]annBLOOD BANK THVHXKW4580-30-39 21:47:00Negative (11/03/18 4:47 PM)[facility] VqcstnrSFFJQSQFASQH0018-88-36 21:47:007.2[facility] HqcdetkOMFNRZGQCVZE9776-32-44 21:47:00* Test Item Value Reference Range Interpretation Comments B/C Ratio (test code = B/C Ratio) 12 1 6-25 [facility] NlydzkjMMTZWLCVLDEW6950-84-47 21:47:003.6[facility] HermannELECTROLYTES 2018-11-03 21:47:00* Test Item Value Reference Range Interpretation Comments A/G Ratio (test code = A/G Ratio) 1.1 1 0.7-1.6 [facility] FmrumquLFEWNVAXHSKW2666-36-61 21:47:0069[facility] HermannELECTROLYTES 2018-11-03 21:47:0011[facility] PbffswnQGMLMYMSSESA7015-78-62 21:47:000.89[facility] WwgajfqPZIAQIQWBLHA3371-03-33 21:47:90059Khfwrryc TvhnhbbIEDVXUUTYZHS8495-83-48 21:47:003.2[facility] VejgzebIKEJFRLPNZSI2081-09-42 21:47:37345Iogxoowa [facility] MPBMAXNGOYMR5167-69-25 21:47:0028[facility] ImjvlguBDHOOEERZDRT4897-27-22 21:47:00 9.0[facility] NpyzlswPQKJNIWQUPBV7967-16-64 21:47:007.7[facility] [place] ODWYPSQRNKXY7778-85-25 21:47:004.1[facility] DcyjdbrTQMZVIDUGBHQ3443-70-46 21:47:0011[facility] DtxchiaUDNEWIGLEKGP6732-05-16 21:47:0010[facility] [place] PVLMGAVYRVIH9364-41-04 21:47:0044[facility] DybhmhoJSSDDHFGEHXW8935-42-23 21:47:00 0.6[facility] JekybmnSILTKAZQPIMF7178-14-47 21:47:0094[facility] [place] EDBMZZTJJNRGZ8887-02-76 21:47:00Negative *NA*(11/03/18 4:47 PM)[facility] ZTQPKPBPPB1351-60-60 21:47:005.2[facility] ShjccjhDOOWKBUDAZ1363-08-45 21:47:00 4.53[facility] ImlluqoSVAYUSDHSU7072-93-79 21:47:0011.8[facility]annHEMATOLOGY 2018-11-03 21:47:0035.8[facility] NzsikgyWTIUVHNGIV8895-94-51 21:47:0079.0[facility] BztvfrnSVPOYTMXZE1681-23-26 21:47:00* Test Item Value Reference Range Interpretation Comments MCH (test code = MCH) 26.1 pg 27.0-31.0 [facility] OutnmgyOHJYHFYOJG9713-13-91 21:47:0033.0[facility]annHEMATOLOGY 2018-11-03 21:47:0015.6[facility] AdurtxfHANWMQRRAW2976-91-16 21:47:60867Qcjhvtue EhhdowtCATEOFDTNS7418-67-79 21:47:007.4[facility] DnnfwwiQDRPDCKEGD4188-60-38 21:47:0043.7[facility] IvvxnxqJGBDNDQXDG5535-52-24 21:47:0046.8[facility] HYVPOKTHSR7360-30-81 21:47:007.0[facility] KnsfpjaQCZGYIDBFG1227-50-54 21:47:001.8 [facility] JcswwuiCJDRSSLYGL6412-29-73 21:47:000.7[facility]annHEMATOLOGY 2018-11-03 21:47:002.3[facility] LbqyyiuNUEHTVUMYX9068-42-96 21:47:002.4[facility] WmqrlqmIIRGJNQVPE9372-56-54 21:47:000.4[facility] OyfzgdaDVXMXVNMMO2194-33-89 21:47:000.1[facility] HermannWET KYTA2194-65-13 17:37:00* Test Item Value Reference Range Interpretation Comments WBC WET PREP (BEAKER) (test code = 528) Few white blood cells seen CLUE CELLS (BEAKER) (test code = 526) [...] Verified Date/Time: 09/08/2018 17:26:18 Reading Locati on: [address] Radiology Reading Room U/S, PELVIS, WITH SXPHCGW7281-91-25 17:26:00 Reason for exam:->ABDOMINAL PAINFINAL REPORT Ultrasound [...] Lyles MDReport Verified Date/Time: 09/08/2018 17:26:18 Reading Location: [address] Radiology Reading Room , BDSCMLD3168-58-13 14:32:00FINAL REPORT TECHNIQUE: CT of the abdomen [...] Verifi ed Date/Time: 09/08/2018 14:32:30 Reading Location: [facility] C013Y CT Body Readin Room C METABOLIC HERML9354-82-12 12:50:00* Test Item Value Reference Range Interpretation Comments SODIUM (BEAKER) (test code = 381) 142 meq/L 135-148 POTASSIUM (BEAKER) (test code = 379) 4.5 meq/L 3.6-5.5 CHLORIDE (BEAKER) (test code = 382) 110 meq/L 98-106 H CO2 (BEAKER) (test code = 355) 25 meq/L 24-32 BLOOD UREA NITROGEN (BEAKER) (test code = 354) 12 mg/dL 10-26 CREATININE (BEAKER) (test code = 358) 0.82 mg/dL 0.50-1.20 GLUCOSE RANDOM (BEAKER) (test code = 652) 85 mg/dL 70-110 CALCIUM (BEAKER) (test code = 697) 8.8 mg/dL 8.5-10.5 EGFR (BEAKER) (test code = 1092) 94 mL/min/1.73 sq m ESTIMATED GFR IS NOT ACCURATE CREATININE CLEARANCE IN PREDICTING GLOMERULAR FILTRATION RATE. ESTIMATED GFR IS NOT APPLICABLE FOR DIALYSIS PATIENTS. HEPATIC FUNCTION [id number] 12:50:00* Test Item Value Reference Range Interpretation Comments TOTAL PROTEIN (BEAKER) (test code = 770) 6.6 gm/dL 6.0-8.5 ALBUMIN (BEAKER) (test code = 1145) 3.5 g/dL 3.5-5.0 BILIRUBIN TOTAL (BEAKER) (test code = 377) 0.5 mg/dL 0.1-1.2 BILIRUBIN DIRECT (BEAKER) (test code = 706) 0.4 mg/dL 0.0-0.4 ALKALINE PHOSPHATASE (BEAKER) (test code = 346) 21 U/L 30-115 L AST (SGOT) (BEAKER) (test code = 353) 23 U/L 5-40 ALT (SGPT) (BEAKER) (test code = 347) 20 U/L 5-50 URINALYSIS W/ REFLEX URINE [id number] 12:46:00* Test Item Value Reference Range Interpretation Comments COLOR (BEAKER) (test code = 470) Yellow CLARITY (BEAKER) (test code = 469) Slightly Cloudy SPECIFIC GRAVITY UA (BEAKER) (test code = 468) 1.032 1.001-1 .035 Test performed on refractometer PH UA (BEAKER) (test code = 467) 6.0 5.0-8.0 PROTEIN UA (BEAKER) (test code = 464) Negative Negative GLUCOSE UA (BEAKER) (test code = 365) Negative Negative KETONES UA (BEAKER) (test code = 371) Negative Negative BILIRUBIN UA (BEAKER) (test code = 462) Positive Negative A BLOOD UA (BEAKER) (test code = 461) Small Negative A NITRITE UA (BEAKER) (test code = 465) Negative Negative LEUKOCYTE ESTERASE UA (BEAKER) (test code = 466) Negative Negat harvey UROBILINOGEN UA (BEAKER) (test code = 463) 0.2 mg/dL 0.2-1.0 BACTERIA (BEAKER) (test code = 517) Moderate MUCUS (BEAKER) (test code = 1574) Many RBC UA-MANUAL (BEAKER) (test code = 1659) 5-10 /HPF WBC UA-MANUAL (BEAKER) (test code = 1661) 10-20 /HPF SQUAMOUS EPITHELIAL MANUAL (BEAKER) (test code = 1663) 10-20 /HPF SOURCE(BEAKER) (test code = 2795) CBC W/PLT COUNT & AUTO [id number] 12:42:00* Test Item Value Reference Range Interpretation Comments WHITE BLOOD CELL COUNT (BEAKER) (test code = 775) 5.0 K/ L 4.0- 10.0 RED BLOOD CELL COUNT (BEAKER) (test code = 761) 4.86 M/ L 4.00-5 .00 HEMOGLOBIN (BEAKER) (test code = 410) 12.2 GM/DL 12.0-15.0 HEMATOCRIT (BEAKER) (test code = 411) 38.2 % 36.0-45.0 MEAN CORPUSCULAR VOLUME (BEAKER) (test code = 753) 78.5 fL 82. 0-99.0 L MEAN CORPUSCULAR HEMOGLOBIN (BEAKER) (test code = 751) 25.1 pg 27.0-33.0 L MEAN CORPUSCULAR HEMOGLOBIN CONC (BEAKER) (test code = 752) 31.9 GM/DL 32.0-36.0 L RED CELL DISTRIBUTION WIDTH (BEAKER) (test code = 412) 15.7 % 10.3-14.2 H PLATELET COUNT (BEAKER) (test code = 756) 301 K/CU MM 150-430 MEAN PLATELET VOLUME (BEAKER) (test code = 754) 8.2 fL 6.5-10 .5 NEUTROPHILS RELATIVE PERCENT (BEAKER) (test code = [...] (test code = 415) 0.33 K/ L 0. 00-1.30 EOSINOPHILS ABSOLUTE COUNT (BEAKER) (test code = 416) 0.21 K/ L 0.00-0.50 BASOPHILS ABSOLUTE COUNT (BEAKER) (test code = 417) 0.02 K/ L 0. 00-0.20 SCREEN, [id number] 12:41:00* Test Item Value Reference Range Interpretation Comments TEST URINE (BEAKER) (test code = 583) Negative
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
--- NOTE | 2019-12-16 13:58 | Diagnostic Imaging Report ---
Limited right breast emergent ultrasound History: Right breast pain with palpable mass beginning a few weeks ago. Comparison: None available. Discussion: Focused transverse and longitudinal images of the region of interest within the right breast were obtained. Please note this is not a complete mammographic quality evaluation and is independent only for emergent purposes for triage. There is a heterogeneous and complex collection in the right area lower region measuring 2.4 x 2.9 x 2.2 cm at the region of patient's palpable abnormality. No significant internal vascularity is noted. Normal appearing lymph nodes are identified in the right axilla. IMPRESSION: Heterogeneous and complex collection in the right perihilar region without significant internal vascularity. Findings are most concerning for probable hematoma. Recommend follow-up with official mammographic and sonographic evaluation in approximately 2-4 weeks to assess for improvement/resolution and to exclude any underlying lesion. Signed by: Rodriguez Davis MD on 12/16/2019 1:55 PM
[2019-12-16] MEDS ORDERED: BACTRIM DS TAB1 EACH PO (14:37)
[2019-12-16] MEDS ORDERED: TYLENOL # 31 EA PO (14:40)
[2019-12-16 14:59] VITALS: BP 117/69
== END 2019-12-16 15:13 | disposition home or self-care (01) ==
LOC: FSED 12:10
DX: N61.1 Abscess of the breast and nipple (principal); N80.9 Endometriosis, unspecified
CPT/HCPCS: 10060; 76642; 87071; 87205; 96372; 99283; J1885